=== PATIENT | male | born 1960 | race Caucasian/White ===

== ENCOUNTER → 2024-12-06 | Day surgery (SDC) | payer OTHER ==
[~2024-12-06] VITALS: Ht 167.6 cm; Wt 77.1 kg
[~2024-12-06] MED LIST: ACETAMINOPHEN 100 ML IV ONE; BUPivacaine 0.5% 10 ML VIAL ONE; Clindamycin Phosphate 50 ML IV ONE; FENOFIBRATE MIC67 MG PO; GABAPENTIN600 MG PO; GLIPIZIDE5 MG PO; LISINOPRIL5 MG PO; Lidocaine Hydrochloride 5 ML AMP ONE; Lidocaine Hydrochloride 5 ML VIAL IV ONE; METFORMIN XR500 MG PO; Ondansetron Hydrochloride 4 MG/2 ML VIAL IV ONE; PROPOFOL 200 MG/20 ML VIAL IV ONE; ROSUVASTATIN CA40 MG PO; SODIUM CHLORIDE 0.9% 1,000 ML IV ONE; SODIUM CHLORIDE 0.9% 100 ML IV ONE; ceFAZolin sodium 1GM/10ML IV SCH; dexmedeTOMIDine HCL 200 MCG/2 ML VIAL IV ONE
[2024-12-06 06:58] VITALS: BP 104/65
[2024-12-06 08:07] VITALS: BP 93/54
[2024-12-06 08:22] VITALS: BP 95/61
[2024-12-06 08:30] VITALS: BP 90/61
[2024-12-06 08:37] VITALS: BP 95/63
[2024-12-06 08:41] VITALS: BP 99/64
== END | disposition home or self-care (01) ==
LOC: SDC 12-01 12:30
PROVIDERS: ATTEND Orthopaedic Surgery
DX: G56.03 Carpal tunnel syndrome, bilateral upper limbs (principal); G90.511 Complex regional pain syndrome I of right upper limb; I10 Essential (primary) hypertension; E11.9 Type 2 diabetes mellitus without complications; E78.5 Hyperlipidemia, unspecified; Z98.890 Other specified postprocedural states; Z79.84 Long term (current) use of oral hypoglycemic drugs; Z79.899 Other long term (current) drug therapy; Z88.0 Allergy status to penicillin; Z88.8 Allergy status to other drugs, medicaments and biological substances